=== PATIENT | female | born 1980 | race Caucasian/White ===

== ENCOUNTER 2017-08-18 08:13 | Emergency (ER) | payer MEDICARE, MEDICAID ==
[~2017-08-18] VITALS: Ht 175.3 cm; Wt 92.0 kg
[2017-08-18 08:18] VITALS: BP 145/79; PULSE 79; RESP 16; TEMP 98.5; O2SAT 99
[2017-08-18] MEDS ORDERED: DIAZ5TAB PO (08:58)
--- NOTE | 2017-08-18 09:40 | PD ---
HPI Chief Complaint: Cold / Flu Symptoms Time Seen by Provider: 09:01 Travel History International Travel<30 days: No Contact w/Intl Traveler<30days: No Traveled to known affect area: No History of Present Illness HPI 37 year old female presents to ER with feelings of general malaise, rhinorrhea and "itchy ears" for one week. She states she has had these symptoms for a week however this morning she woke up with throat pain, pain with deep breathes, a sputum productive cough and non radiating central chest pain she describes as feeling like "strep throat". She states that she is living with her boyfriend who has had been feeling ill with similar symptoms for one week although he has not been evaluated by a medical provider. She has been taking Dayquil for symptoms for the past week with minimal relief. She also is complaining of achy musculature back pain and loss of appetite. She denies fevers, SOB, abdominal pain, N/V/D, and changes in hearing. The patient has not had a flu shot this year. She is a tobacco user however states she has been using a "nicotine patch for 4 days". Denies alcohol and drug use. 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 Past Surgical History Surgical History: No Previous Surgery Social History Alcohol Use: No Tobacco Use: Yes (CURRENTLY ON NICOTINE PATCH) Substance Use: No Allergies-Medications (Allergen,Severity, Reaction): Coded Allergies: Penicillins (Verified Allergy, Unknown, 08/18/17) ketorolac (Verified Allergy, Unknown, 08/18/17) tramadol (Verified Allergy, Unknown, 08/18/17) Reported Meds & Prescriptions Reported Meds & Active Scripts Active Reported Diazepam 5 Mg Tab 5 Mg PO TID PRN Review of Systems Except as stated in HPI: all other systems reviewed are Neg General / Constitutional: Positive: Chills HENT: Positive: Sore Throat, Rhinorrhea, Other Cardiovascular: Positive: Chest Pain or Discomfort Respiratory: Positive: Cough, Pleuritic Pain Musculoskeletal: Positive: Myalgias Physical Exam Narrative GENERAL: Well-developed young female patient currently in mild distress. Awake and oriented 3.] SKIN: Focused skin assessment warm/dry. HEAD: Atraumatic. Normocephalic. EYES: Pupils equal and round. No scleral icterus. No injection or drainage. ENT: Mucosa pink and moist. Mild erythema with no exudates. No uvular edema. No uvular, palatal, or tonsillar deviation. Airway patent. Nasal turbinates appear normal without nasal blood, purulent drainage or septal hematoma. NECK: Trachea midline. No JVD. Supple. CARDIOVASCULAR: Regular rate and rhythm. No murmur appreciated. RESPIRATORY: No accessory muscle use. Clear to auscultation. Breath sounds equal bilaterally. No wheezing or crackles. GASTROINTESTINAL: Abdomen soft, non-tender, nondistended. Hepatic and splenic margins not palpable. MUSCULOSKELETAL: No obvious deformities. No clubbing. No cyanosis. No edema. NEUROLOGICAL: Awake and alert. No obvious cranial nerve deficits. Motor grossly within normal limits. Normal speech. PSYCHIATRIC: Appropriate mood and affect; insight and judgment normal. Data Data Last Documented VS Vital Signs Date Time Temp Pulse Resp B/P (MAP) Pulse Ox O2 Delivery O2 Flow Rate FiO2 08/18/17 08:42 16 99 Room Air 08/18/17 08:18 98.5 79 145/79 (101) Orders Orders Group A Rapid Strep Screen (08/18/17 09:01) Influenzae A/B Antigen (08/18/17 09:01) Chest, Pa & Lat (08/18/17 09:20) Strep Culture (Group A) (08/18/17 09:30) [facility] Medical Decision Making Medical Screen Exam Complete: Yes Emergency Medical Condition: Yes Medical Record Reviewed: Yes Interpretation(s) Last 24 hours Impressions Chest X-Ray 08/18/17919 Signed Impressions: Service Date/Time: Friday, August 18, 2017 09:32 - CONCLUSION: No acute disease. Rodney Mcleod MD Differential Diagnosis Influenza versus viral syndrome versus pneumonia versus bronchitis versus pneumothorax versus costochondritis versus pleurisy Narrative Course Chest x-ray did not show any signs of acute pulmonary processes. Vital signs are stable, there is no significant fevers or tachycardia. Influenza testing and rapid strep testing is unremarkable. At this point, I suspect that she may have some underlying viral syndrome and chest wall irritation from coughing. My plan would be to treat her symptomatically and have her follow-up with primary care physician. Return for any worsening in symptoms as necessary. The plan has been discussed with her and she states understanding. Diagnosis Primary Impression: Viral syndrome Med/Other Pt SpecificInfo: Prescription(s) given Scripts Ibuprofen (Ibuprofen) 600 Mg Tab 600 MG PO Q6H Y for Pain/Inflammation, #20 TAB 0 Refills Prov: Ramos Tim MD 08/18/17 Benzonatate (Tessalon Perles) 100 Mg Cap 100 MG PO TID Y for COUGH, #15 CAP 0 Refills Prov: Ramos Tim MD 08/18/17 Disposition: 01 DISCHARGE HOME Condition: Stable Ramos Tim MD Aug 18, 2017 09:40
--- NOTE | 2017-08-18 09:53 | RADRPT ---
EXAM DATE/TIME: 08/18/2017 09:32 [facility] COMPARISON: No previous studies available for comparison. INDICATIONS : Cough, chest congestion. MEDICAL HISTORY : None. SURGICAL HISTORY : None. ENCOUNTER: Initial ACUITY: 1 day PAIN SCORE: 2/10 LOCATION: Bilateral chest FINDINGS: PA and lateral views of the chest demonstrate the lungs to be symmetrically aerated without evidence of mass, infiltrate or effusion. The cardiomediastinal contours are unremarkable. Osseous structure s are intact. CONCLUSION: No acute disease. Rodney Mcleod MD on August 18, 2017 at 9:50 Board Certified Radiologist. This report was verified electronically.
[2017-08-18] MEDS ORDERED: IBUP-232 PO (10:20)
[2017-08-18] MEDS ORDERED: BENZ100 PO (10:20)
== END 2017-08-18 10:58 | disposition home or self-care (01) ==
LOC: PHED 08:13
DX: B34.9 Viral infection, unspecified (principal); Z72.0 Tobacco use
CPT/HCPCS: 71046; 87081; 87804; 87880; 99284